=== PATIENT | male | born 1980 | race Caucasian/White ===

== ENCOUNTER 2023-07-29 12:30 | Outpatient (CLI) | payer OTHER, SELFPAY | END 2023-07-29 12:31 | disposition home or self-care (01) | PROVIDERS: PCP Family Medicine; Visit Provider Family Medicine | DX: R10.9 Unspecified abdominal pain (principal) | CPT/HCPCS: 80053; 83690; 85025; 86140 ==

== ENCOUNTER 2023-08-04 13:45 | Outpatient (CLI) | payer OTHER, SELFPAY ==
--- NOTE | 2023-08-04 14:00 | CRLHL7_ITS ---
For Patients: As a result of the Century Cures Act, medical imaging exams and procedure reports are released immediately into your electronic medical record. You may view this report before your referring provider. If you have questions, please contact your health care provider. CLINICAL HISTORY: Abdominal pain FINDINGS: Liver appears heterogeneous in appearance. There are areas of increased echogenicity this probably reflects areas of fatty infiltration. The visualized portions of the pancreas appears normal. The proximal abdominal aorta and IVC appear normal. There is no evidence of ascites. The gallbladder is of normal size and there is no evidence of sludge or stones within the gallbladder lumen. The gallbladder wall measures 2 mm in thickness. The common bile duct measures 3 mm in size within the bennie hepatis. Right kidney measures 9.3 centimeters and unremarkable. IMPRESSION: Heterogeneous appearance of the liver with areas of increased echogenicity likely reflecting areas of fatty infiltration. Study is otherwise unremarkable. Dictated by Aleisha Miranda MD @ 08/06/2023 8:09:49 PM (Electronically Signed)
== END 2023-08-04 13:46 | disposition home or self-care (01) ==
LOC: US 13:46
PROVIDERS: PCP Family Medicine; Visit Provider Family Medicine
DX: R10.9 Unspecified abdominal pain (principal); G89.29 Other chronic pain
CPT/HCPCS: 76705